=== PATIENT | female | born 1950 | race Caucasian/White ===

== ENCOUNTER 2019-01-22 06:52 | Day surgery (SDC) | payer OTHER ==
[~2019-01-22] VITALS: Ht 172.7 cm; Wt 72.6 kg
[~2019-01-22 06:52] MED LIST: ALLO100T PO; APIX5TAB PO; ATOR10TA69 PO; CHOL500050 PO; FAMO20TA8 PO; FERS325 PO; FOLIC ACID PO; HYDR-4153 PO; HYDR200T4 PO; LEVE500T19 PO; METO25TA6 PO; MULT-1258 PO; SODIUM CHLORIDE 0.9% 1000ML 1,000 ML IV ONE; VENL100T4 PO
[2019-01-22 07:26] VITALS: BP 156/92
[2019-01-22] MEDS ORDERED: PROPOFOL 10 MG/ML 20ML VIAL IV ONE (09:32)
[2019-01-22] MEDS ORDERED: MIDAZOLAM HCL 1 MG/ML 2ML VIAL ONE (09:35)
[2019-01-22 10:07] VITALS: BP 145/86
[2019-01-22 10:13] VITALS: BP 145/85
[2019-01-22 10:19] VITALS: BP 152/81
[2019-01-22 10:26] VITALS: BP 165/69
== END 2019-01-22 10:35 | disposition home or self-care (01) ==
LOC: DAH 06:52 → ENDO 06:52
PROVIDERS: ATTEND Internal Medicine
DX: R19.5 Other fecal abnormalities (principal); D12.0 Benign neoplasm of cecum; D12.4 Benign neoplasm of descending colon; D12.8 Benign neoplasm of rectum; I10 Essential (primary) hypertension; F41.9 Anxiety disorder, unspecified; F32.9 Major depressive disorder, single episode, unspecified; E78.5 Hyperlipidemia, unspecified; M81.0 Age-related osteoporosis without current pathological fracture; G40.909 Epilepsy, unspecified, not intractable, without status epilepticus; M19.90 Unspecified osteoarthritis, unspecified site; F17.210 Nicotine dependence, cigarettes, uncomplicated; K63.89 Other specified diseases of intestine; Z79.01 Long term (current) use of anticoagulants; Z79.899 Other long term (current) drug therapy; Z82.49 Family history of ischemic heart disease and other diseases of the circulatory system; Z98.890 Other specified postprocedural states
CPT/HCPCS: 45380; 45385; 88305; A4215; A4221; A4222; A4223; A4606; A4615; A4663; J2250; J2704; J7030